=== PATIENT | male | born 1970 | race Two or more races ===

== ENCOUNTER 2017-03-14 14:13 | Emergency (ER) | payer MEDICAID ==
[~2017-03-14] VITALS: Ht 177.8 cm; Wt 79.8 kg
[2017-03-14] MEDS ORDERED: BUPROPION HCL150 M3 ORAL (14:36)
[2017-03-14] MEDS ORDERED: SERTRALINE HCL25 MG ORAL (14:36)
[2017-03-14] MEDS ORDERED: ATIVAN2 MG ORAL (14:36)
[2017-03-14] MEDS ORDERED: QUETIAPINE FUM400 MG ORAL ×2 (14:36→15:23)
--- NOTE | 2017-03-14 15:21 | Emergency Room Report ---
History of Present Illness General Chief Complaint: Medication Refill Source: Patient Present Illness HPI 46-year-old male presents to the emergency department requesting medication refill for : Seroquel, Ativan, Wellbutrin, history of anxiety, depression and bipolar type I . Denies SI, HI, hallucinations, delusions, PSAs, previous psychiatric hospitalizations.Denies CP, Palpitations, LOC, AMS, dizziness, Changes in Vision, Sensation, paresthesias, or a sudden severe headache. Patient History Past Medical History: see triage record Past Surgical History: none Pertinent Family History: none Reviewed Nursing Documentation: PMH: Agreed, PSxH: Agreed Nursing Documentation-PMH History Of Psychiatric Problem: Yes - Bipolar; Depression; Anxiety Review of Systems All Other Systems: negative except mentioned in HPI Physical Exam Vital Signs Date Time Temp Pulse Resp B/P (MAP) Pulse Ox O2 Delivery O2 Flow Rate FiO2 03/14/17 14:30 98.4 90 16 129/87 99 Room Air Sp02 EP Interpretation: reviewed, normal General Appearance: no apparent distress, alert, GCS 15, non-toxic Head: normocephalic, atraumatic Eyes: bilateral eye normal inspection, bilateral eye PERRL ENT: hearing grossly normal, normal voice Neck: full range of motion Respiratory: lungs clear, normal breath sounds, speaking full sentences Cardiovascular #1: regular rate, rhythm Gastrointestinal: non tender, soft Rectal: deferred Musculoskeletal: back normal, gait/station normal, normal range of motion, non- tender Neurologic: alert, oriented x3, responsive, motor strength/tone normal, sensory intact, normal gait, speech normal Psychiatric: judgement/insight normal, memory normal, mood/affect normal, no suicidal/homicidal ideation Skin: normal color, no rash, warm/dry, well hydrated Medical Decision Making PA Attestation Dr. Perales is my supervising Physician whom patient management has been discussed with. Diagnostic Impression: Primary Impression: Encounter for medication refill ER Course 46-year-old male presents to the emergency department requesting medication refill for : Seroquel, Ativan, Wellbutrin, history of anxiety, depression and bipolar type I . Denies SI, HI, hallucinations, delusions, PSAs, previous psychiatric hospitalizations.Denies CP, Palpitations, LOC, AMS, dizziness, Changes in Vision, Sensation, paresthesias, or a sudden severe headache. Ddx considered but are not limited to: drug seeking, OD, non-compliance with follow up , Vital signs: are WNL, pt. is afebrile H&PE are most consistent with need for medication refill. ORDERS: none required at this time, the diagnosis is clinical ED INTERVENTIONS: None required at this time. - discussed with this patient I do not find it necessary to emergently refill his Ativan, and that he comes this is a controlled substance that he needs to followup with his primary prescribing physician. I discussed with him that I would write small amount of BuSpar which is an alternative anti-anxiety medication for use as needed in the meantime. DISCHARGE: At this time pt. is stable for d/c to home. Will provide printed patient care instructions, and any necessary prescriptions. Care plan and follow up instructions have been discussed with the patient prior to discharge. Last Vital Signs Date Time Temp Pulse Resp B/P (MAP) Pulse Ox O2 Delivery O2 Flow Rate FiO2 03/14/17 14:30 98.4 90 16 129/87 99 Room Air Disposition: HOME, SELF-CARE Condition: Stable Scripts Buspirone Hcl* (BUSPAR*) 10 Mg Tablet 10 MG ORAL THREE TIMES A DAY Y for For Anxiety, #15 TAB 0 Refills Prov: Nette Saha 03/14/17 Sertraline Hcl* (ZOLOFT*) 100 Mg Tablet 100 MG ORAL DAILY, #30 TAB Prov: Nette Saha.A. 03/14/17 Quetiapine Fumarate* (QUETIAPINE FUMARATE*) 400 Mg Tablet 400 MG ORAL QHS for 7 Days, #7 TAB Prov: Nette Saha.[place]. 03/14/17 Patient Instructions: Medicine Refill at the Emergency Department Additional Instructions: Take medications as directed. Follow up with a Primary Care Provider in 3-5 days, even if your symptoms have resolved. --Please review list of primary care clinics, if you do not already have a primary care provider Return sooner to ED if new symptoms occur, or current symptoms become worse. -Please Review Resource Information for: [facility] - Please note that this Emergency Department Report was dictated using [employer]ap[employer] receptionist technology software, occasionally this can lead to erroneous entry secondary to interpretation by the dictation equipment. Nette Saha Mar 14, 2017 15:21
[2017-03-14] MEDS ORDERED: BUSPAR10 MG ORAL (15:23)
[2017-03-14] MEDS ORDERED: ZOLOFT100 MG ORAL (15:23)
[2017-03-14 15:39] VITALS: BP 129/87
== END 2017-03-14 15:42 | disposition home or self-care (01) ==
LOC: EMR 14:55
DX: Z76.0 Encounter for issue of repeat prescription (principal); F31.9 Bipolar disorder, unspecified; F41.9 Anxiety disorder, unspecified
CPT/HCPCS: 99283